=== PATIENT | female | born 1985 | race Caucasian/White ===

== ENCOUNTER 2016-08-16 16:19 | Emergency (ER) | payer OTHER ==
[~2016-08-16] VITALS: Ht 170.2 cm; Wt 58.6 kg
[~2016-08-16 16:19] MED LIST: AMOX TR-K CLV1 EAC3 PO; DICLEGIS DR 101 EACH PO; INSULIN PUMP SCCONT; LEVEMIR FL100 UNIT/1 SC; LEVOTHYROXINE50 MCG PO; LYRICA25 MG PO; MIRENA52 MG IY; NOVOLOG 10100 UNITS/ SC; PERCOCET 5/31 TABLET PO; PROAIR HFA8.5 GM IH; TYLENOL EXTRA500 MG PO
[2016-08-16] MEDS ORDERED: MOTRIN600 MG PO (18:14)
[2016-08-16] MEDS ORDERED: PEN-VEE K,VEET500 MG PO (18:14)
[2016-08-16] MEDS ORDERED: LORTAB 5-325 M1 EACH PO (18:14)
[2016-08-16 18:29] VITALS: BP 141/80
== END 2016-08-16 18:30 | disposition home or self-care (01) ==
LOC: EME 16:19
PROC: 3E0T3BZ Introduction of Anesthetic Agent into Peripheral Nerves and Plexi, Percutaneous Approach (ICD-10-PCS; principal; 2016-08-16)
DX: K08.89 Other specified disorders of teeth and supporting structures (principal); J45.909 Unspecified asthma, uncomplicated; E11.9 Type 2 diabetes mellitus without complications; Z79.4 Long term (current) use of insulin; F17.200 Nicotine dependence, unspecified, uncomplicated
CPT/HCPCS: 99281; 99284; S0020

== ENCOUNTER 2016-11-04 08:53 | Emergency (ER) | payer OTHER ==
[~2016-11-04] VITALS: Ht 170.2 cm; Wt 55.2 kg
[~2016-11-04 08:53] MED LIST changes: +LORTAB 5-325 M1 EACH PO; +MOTRIN600 MG PO; +PEN-VEE K,VEET500 MG PO
[2016-11-04 09:24] LABS: HEMATOCRIT 44.7 % (36.0-46.0); MCH 27.3 PG (29.0-34.0); MCV 85.3 FL (83-99); MEAN PLAT.VOLUME 11.9 uM^3 (9.5-12.4); PLATELET COUNT 228 K/uL (156-360); RBC DIS.WIDTH-CV 14.4 % (11.8-14.6); RBC DIS.WIDTH-SD 44.5 % (39-53); RED BLOOD COUNT 5.24 M/uL (3.80-5.20); WHITE BLOOD COUNT 9.1 K/uL (4.1-10.2)
[2016-11-04 09:34] LABS: CHLORIDE 105 mEq/L (99-109); POTASSIUM 3.7 mEq/L (3.7-5.4); SODIUM 138 mEq/L (136-147)
[2016-11-04 09:36] LABS: GLUCOSE 384 mg/dL (70-99)
[2016-11-04 09:38] LABS: CARBON DIOXIDE (BICARBONATE) 24.8 MEQ/L (20-31)
[2016-11-04 09:38] LABS: ANION GAP 11 MEQ/L (2-14)
[2016-11-04 09:40] LABS: GFR ESTIMATE (CALCULATED) > 59 mL/min/
[2016-11-04 09:41] LABS: UREA NITROGEN (BUN) 15 mg/dL (9-23)
[2016-11-04 09:44] LABS: POINT-OF-CARE METER ID UU13113702
[2016-11-04 10:44] LABS: ADD MIUA? NO; BILIRUBIN NEGATIVE; BLOOD NEGATIVE; COLOR YELLOW ((YELLOW)); GLUCOSE (STRIP) >=500; KETONES NEGATIVE; LEUKOCYTES NEGATIVE; NITRITE NEGATIVE; PROTEIN (STRIP) NEGATIVE; SPECIFIC GRAVITY 1.037 (1.000-1.030); UCUL ADDED? NO; UROBILINOGEN 0.2 MG/DL (0.2-1.0)
[2016-11-04 10:58] LABS: POINT-OF-CARE METER ID UU13113702
[2016-11-04 11:39] VITALS: BP 108/85
[2016-11-04 18:04] LABS: BASOPHIL COUNT 0.1 K/uL (0-0.1); EOSINOPHIL (%) 0.9 % (0-5); EOSINOPHIL COUNT 0.1 K/uL (0-0.3); IMMATURE GRANULOCYTE (%) 0.1 % (0.0-0.7); INSTRUMENT ABS NEUTROPHIL CT 5.9 K/uL; LYMPHOCYTE COUNT 2.6 K/uL (1.0-2.8); MONOCYTE (%) 4.7 % (3-12); MONOCYTE COUNT 0.4 K/uL (0-0.8); NEUTROPHIL (%) 64.9 % (45-76); NEUTROPHIL COUNT 5.9 K/uL (1.8-6.4); PLAT.SUFFICIENCY ADEQUATE
== END 2016-11-04 11:40 | disposition home or self-care (01) ==
LOC: EME 08:53
PROVIDERS: Emergency Medicine
DX: E11.65 Type 2 diabetes mellitus with hyperglycemia (principal); Z79.4 Long term (current) use of insulin; J45.909 Unspecified asthma, uncomplicated; F17.200 Nicotine dependence, unspecified, uncomplicated
CPT/HCPCS: 80048; 81003; 82010; 82803; 82948; 85025; 99281; 99285; J7030

== ENCOUNTER 2017-03-08 17:30 | Emergency (ER) | payer OTHER ==
[~2017-03-08] VITALS: Ht 170.2 cm; Wt 58.8 kg
[2017-03-08] MEDS ORDERED: LEVEMIR FL100 UNIT/1 SC (18:19)
[2017-03-08] MEDS ORDERED: LYRICA75 MG PO (18:21)
[2017-03-08] MEDS ORDERED: NOVOLOG100 UNIT/1 SC (18:21)
[2017-03-08] MEDS ORDERED: ADVAIR 100/501 DISK IH (18:22)
[2017-03-08] MEDS ORDERED: ATARAX,VISTARIL25 MG PO (18:23)
[2017-03-08] MEDS ORDERED: ONCE DAILY1 EACH PO (18:24)
[2017-03-08] MEDS ORDERED: VITAMIN D31000 UNI2 PO (18:24)
[2017-03-08 18:41] LABS: HEMATOCRIT 40.8 % (36.0-46.0); MCH 28.4 PG (29.0-34.0); MCHC 32.8 G/DL (30.0-36.0); MCV 86.4 FL (83-99); MEAN PLAT.VOLUME 11.6 uM^3 (9.5-12.4); PLATELET COUNT 182 K/uL (156-360); RBC DIS.WIDTH-CV 12.9 % (11.8-14.6); RBC DIS.WIDTH-SD 40.7 % (39-53); RED BLOOD COUNT 4.72 M/uL (3.80-5.20); WHITE BLOOD COUNT 6.8 K/uL (4.1-10.2)
[2017-03-08 18:50] LABS: CHLORIDE 103 mEq/L (99-109); POTASSIUM 3.8 mEq/L (3.7-5.4); SODIUM 138 mEq/L (136-147)
[2017-03-08 18:52] LABS: GLUCOSE 299 mg/dL (70-99)
[2017-03-08 18:53] LABS: ANION GAP 11 MEQ/L (2-14)
[2017-03-08 18:56] LABS: GFR ESTIMATE (CALCULATED) > 59 mL/min/
[2017-03-08 18:57] LABS: UREA NITROGEN (BUN) 12 mg/dL (9-23)
[2017-03-08 19:02] LABS: TROP-I INTERPRETATION NEGATIVE; TROPONIN-I < 0.01 ng/mL (0.0-0.30)
[2017-03-08 19:21] LABS: D-DIMER ELISA < 150.00 ng/mLDDU (<230)
[2017-03-08 21:20] VITALS: BP 110/69
== END 2017-03-08 21:25 | disposition home or self-care (01) ==
LOC: EME 17:30
PROVIDERS: Emergency Medicine
DX: R07.9 Chest pain, unspecified (principal); F17.200 Nicotine dependence, unspecified, uncomplicated; J45.909 Unspecified asthma, uncomplicated; E10.9 Type 1 diabetes mellitus without complications; Z79.4 Long term (current) use of insulin; Z96.41 Presence of insulin pump (external) (internal); Z97.5 Presence of (intrauterine) contraceptive device
CPT/HCPCS: 71020; 80048; 84484; 85027; 85379; 93005; 99281; 99284

== ENCOUNTER 2017-05-13 11:10 | Emergency (ER) | payer OTHER ==
[~2017-05-13] VITALS: Ht 170.2 cm; Wt 57.2 kg
[~2017-05-13 11:10] MED LIST changes: +ADVAIR 100/501 DISK IH; +ATARAX,VISTARIL25 MG PO; +LYRICA75 MG PO; +NOVOLOG100 UNIT/1 SC; +ONCE DAILY1 EACH PO; +VITAMIN D31000 UNI2 PO
[2017-05-13 11:42] LABS: ADD MIUA? YES; BILIRUBIN NEGATIVE; BLOOD SMALL; COLOR STRAW ((YELLOW)); GLUCOSE (STRIP) >=500; KETONES 80; LEUKOCYTES NEGATIVE; NITRITE NEGATIVE; PROTEIN (STRIP) NEGATIVE; SPECIFIC GRAVITY 1.035 (1.000-1.030); UROBILINOGEN 0.2 MG/DL (0.2-1.0)
[2017-05-13 11:46] LABS: BACTERIA RARE /HPF; EPITHELIAL CELLS 1+ /HPF; MUCUS TRACE /LPF; RED BLOOD CELLS 0-5 /HPF (0-5); UCUL ADDED? NO; WHITE BLOOD CELLS 0-5 /HPF (0-5)
[2017-05-13 11:47] LABS: HEMATOCRIT 45.1 % (36.0-46.0); MCH 28.4 PG (29.0-34.0); MCHC 32.6 G/DL (30.0-36.0); MCV 87.2 FL (83-99); MEAN PLAT.VOLUME 11.8 uM^3 (9.5-12.4); PLATELET COUNT 176 K/uL (156-360); RBC DIS.WIDTH-CV 13.2 % (11.8-14.6); RBC DIS.WIDTH-SD 42.4 % (39-53); RED BLOOD COUNT 5.17 M/uL (3.80-5.20); WHITE BLOOD COUNT 9.5 K/uL (4.1-10.2)
[2017-05-13 11:50] LABS: CARBON DIOXIDE (BICARBONATE) 29.1 MEQ/L (20-31)
[2017-05-13 11:56] LABS: CHLORIDE 98 mEq/L (99-109); POTASSIUM 4.4 mEq/L (3.7-5.4); SODIUM 134 mEq/L (136-147)
[2017-05-13 11:59] LABS: ANION GAP 13 MEQ/L (2-14)
[2017-05-13 12:00] LABS: TOTAL BILIRUBIN 0.7 mg/dL (0.0-1.0)
[2017-05-13 12:01] LABS: ALKALINE PHOSPHATASE 120 IU/L (3-129)
[2017-05-13 12:02] LABS: GFR ESTIMATE (CALCULATED) > 59 mL/min/
[2017-05-13 12:03] LABS: UREA NITROGEN (BUN) 10 mg/dL (9-23)
[2017-05-13 12:15] LABS: QUANTITATIVE HCG < 4.0 MIU/ML
[2017-05-13 12:17] LABS: GLUCOSE 468 mg/dL (70-99)
[2017-05-13 14:54] LABS: POINT-OF-CARE METER ID UU14100415
[2017-05-13 15:25] LABS: CARBON DIOXIDE (BICARBONATE) 27.9 MEQ/L (20-31)
[2017-05-13 15:35] LABS: ANION GAP 6 MEQ/L (2-14)
[2017-05-13 15:38] LABS: GFR ESTIMATE (CALCULATED) > 59 mL/min/
[2017-05-13 15:39] LABS: UREA NITROGEN (BUN) 10 mg/dL (9-23)
[2017-05-13 15:42] LABS: CHLORIDE 113 mEq/L (99-109); GLUCOSE 91 mg/dL (70-99); POTASSIUM 3.5 mEq/L (3.7-5.4); SODIUM 141 mEq/L (136-147)
[2017-05-13 16:38] VITALS: BP 102/62
== END 2017-05-13 16:40 | disposition home or self-care (01) ==
LOC: EME 11:10
PROVIDERS: Emergency Medicine; Nurse Practitioner Family
DX: E11.65 Type 2 diabetes mellitus with hyperglycemia (principal); E86.0 Dehydration; Z79.4 Long term (current) use of insulin; J45.909 Unspecified asthma, uncomplicated; F32.9 Major depressive disorder, single episode, unspecified; F41.9 Anxiety disorder, unspecified; F17.200 Nicotine dependence, unspecified, uncomplicated; Z88.8 Allergy status to other drugs, medicaments and biological substances
CPT/HCPCS: 80048 91; 80053; 81003; 82010; 82803; 82948; 84702; 85027; 99281; 99285; J7030

== ENCOUNTER → 2017-12-03 | Outpatient (CLI) | payer BC, OTHER | END | disposition home or self-care (01) | LOC: RES 10-22 08:00 | DX: J45.990 Exercise induced bronchospasm (principal); J30.9 Allergic rhinitis, unspecified | CPT/HCPCS: 94070; 94726; 94729 ==

== ENCOUNTER 2018-01-09 12:43 | Emergency (ER) | payer BC, OTHER ==
[~2018-01-09] VITALS: Ht 165.1 cm; Wt 57.0 kg
[2018-01-09 13:51] LABS: BASOPHIL (%) 0.8 % (0-1); BASOPHIL COUNT 0.1 K/uL (0-0.1); EOSINOPHIL (%) 1.1 % (0-5); EOSINOPHIL COUNT 0.1 K/uL (0-0.3); HEMATOCRIT 39.6 % (36.0-46.0); HEMOGLOBIN 13.8 G/DL (11.9-15.5); IMMATURE GRANULOCYTE (%) 0.3 % (0.0-0.7); LYMPHOCYTE (%) 26.3 % (15-42); LYMPHOCYTE COUNT 2.7 K/uL (1.0-2.8); MCH 29.4 PG (29.0-34.0); MCHC 34.8 G/DL (30.0-36.0); MCV 84.3 FL (83-99); MONOCYTE (%) 5.7 % (3-12); MONOCYTE COUNT 0.6 K/uL (0-0.8); NEUTROPHIL (%) 65.8 % (45-76); NEUTROPHIL COUNT 6.8 K/uL (1.8-6.4); PLATELET COUNT 191 K/uL (156-360); RBC DIS.WIDTH-CV 12.4 % (11.8-14.6); RBC DIS.WIDTH-SD 38.4 % (39-53); WHITE BLOOD COUNT 10.4 K/uL (4.1-10.2)
[2018-01-09 13:59] LABS: CHLORIDE 101 mEq/L (99-109); POTASSIUM 3.5 mEq/L (3.7-5.4); SODIUM 137 mEq/L (136-147)
[2018-01-09 14:00] LABS: GLUCOSE 278 mg/dL (70-99)
[2018-01-09 14:04] LABS: CREATININE 0.8 mg/dL (0.6-1.3); GFR ESTIMATE (CALCULATED) > 59 mL/min/
[2018-01-09 14:05] LABS: UREA NITROGEN (BUN) 10 mg/dL (9-23)
[2018-01-09 16:20] LABS: APPEARANCE SL.HAZY ((CLEAR)); BILIRUBIN NEGATIVE; BLOOD NEGATIVE; COLOR YELLOW ((YELLOW)); GLUCOSE (STRIP) >=500; KETONES 20; LEUKOCYTES NEGATIVE; NITRITE NEGATIVE; PROTEIN (STRIP) 30; SPECIFIC GRAVITY 1.044 (1.000-1.030); UROBILINOGEN 0.2 MG/DL (0.2-1.0)
[2018-01-09 16:23] LABS: BACTERIA NONE SEEN /HPF; EPITHELIAL CELLS 2+ /HPF; MUCUS TRACE /LPF; UCUL ADDED? NO; WHITE BLOOD CELLS 0-5 /HPF (0-5)
[2018-01-09] MEDS ORDERED: MOTRIN600 MG PO (16:31)
[2018-01-09] MEDS ORDERED: SKELAXIN800 MG PO (16:31)
[2018-01-09 16:35] VITALS: BP 119/71
== END 2018-01-09 17:06 | disposition home or self-care (01) ==
LOC: EME 12:43
PROVIDERS: Emergency Medicine
DX: M43.6 Torticollis (principal); E10.65 Type 1 diabetes mellitus with hyperglycemia; R42 Dizziness and giddiness; Z96.41 Presence of insulin pump (external) (internal); Z79.4 Long term (current) use of insulin; J45.909 Unspecified asthma, uncomplicated; F17.200 Nicotine dependence, unspecified, uncomplicated; Z88.8 Allergy status to other drugs, medicaments and biological substances
CPT/HCPCS: 80048; 81003; 82948; 85025; 99281; 99285; J1885; J2060

== ENCOUNTER 2018-01-26 11:06 | Emergency (ER) | payer BC, OTHER ==
[~2018-01-26] VITALS: Ht 170.2 cm; Wt 54.0 kg
[~2018-01-26 11:06] MED LIST changes: +SKELAXIN800 MG PO
[2018-01-26 11:42] LABS: BASOPHIL (%) 0.8 % (0-1); BASOPHIL COUNT 0.1 K/uL (0-0.1); EOSINOPHIL (%) 1.1 % (0-5); EOSINOPHIL COUNT 0.1 K/uL (0-0.3); HEMATOCRIT 47.1 % (36.0-46.0); IMMATURE GRANULOCYTE (%) 0.3 % (0.0-0.7); LYMPHOCYTE (%) 22.7 % (15-42); LYMPHOCYTE COUNT 2.2 K/uL (1.0-2.8); MCHC 33.8 G/DL (30.0-36.0); MCV 85.9 FL (83-99); MONOCYTE (%) 4.4 % (3-12); MONOCYTE COUNT 0.4 K/uL (0-0.8); NEUTROPHIL (%) 70.7 % (45-76); NEUTROPHIL COUNT 6.8 K/uL (1.8-6.4); PLATELET COUNT 224 K/uL (156-360); RBC DIS.WIDTH-CV 12.6 % (11.8-14.6); RBC DIS.WIDTH-SD 39.6 % (39-53); RED BLOOD COUNT 5.48 M/uL (3.80-5.20); WHITE BLOOD COUNT 9.6 K/uL (4.1-10.2)
[2018-01-26 11:43] LABS: HEMOGLOBIN 15.9 G/DL (11.9-15.5)
[2018-01-26 11:48] LABS: CHLORIDE 94 mEq/L (99-109); POTASSIUM 3.9 mEq/L (3.7-5.4); SODIUM 132 mEq/L (136-147)
[2018-01-26 11:53] LABS: CREATININE 1.2 mg/dL (0.6-1.3); GFR ESTIMATE (CALCULATED) 56 mL/min/
[2018-01-26 11:54] LABS: UREA NITROGEN (BUN) 12 mg/dL (9-23)
[2018-01-26 11:56] LABS: GLUCOSE 536 mg/dL (70-99)
[2018-01-26 12:03] LABS: APPEARANCE CLEAR ((CLEAR)); BILIRUBIN NEGATIVE; BLOOD NEGATIVE; COLOR YELLOW ((YELLOW)); GLUCOSE (STRIP) >=500; KETONES 20; LEUKOCYTES NEGATIVE; NITRITE NEGATIVE; PROTEIN (STRIP) NEGATIVE; SPECIFIC GRAVITY 1.036 (1.000-1.030); UCUL ADDED? NO; UROBILINOGEN 0.2 MG/DL (0.2-1.0)
[2018-01-26 14:08] VITALS: BP 109/69
== END 2018-01-26 14:10 | disposition home or self-care (01) ==
LOC: EME 11:06
PROVIDERS: Emergency Medicine
DX: E11.65 Type 2 diabetes mellitus with hyperglycemia (principal); R42 Dizziness and giddiness; R11.0 Nausea; R05 Cough; J45.909 Unspecified asthma, uncomplicated; Z79.4 Long term (current) use of insulin; F17.200 Nicotine dependence, unspecified, uncomplicated
CPT/HCPCS: 71046; 80048; 81003; 81025; 82010; 82948; 85025; 99281; 99285

== ENCOUNTER 2018-02-09 09:02 | Emergency (ER) | payer BC, OTHER ==
[~2018-02-09] VITALS: Ht 170.2 cm; Wt 55.7 kg
[2018-02-09 09:51] LABS: BASOPHIL (%) 0.8 % (0-1); BASOPHIL COUNT 0.1 K/uL (0-0.1); EOSINOPHIL (%) 0.8 % (0-5); EOSINOPHIL COUNT 0.1 K/uL (0-0.3); HEMATOCRIT 42.1 % (36.0-46.0); HEMOGLOBIN 14.3 G/DL (11.9-15.5); IMMATURE GRANULOCYTE (%) 0.2 % (0.0-0.7); LYMPHOCYTE (%) 20.2 % (15-42); LYMPHOCYTE COUNT 2.2 K/uL (1.0-2.8); MCH 29.2 PG (29.0-34.0); MCV 85.9 FL (83-99); MONOCYTE (%) 4.5 % (3-12); MONOCYTE COUNT 0.5 K/uL (0-0.8); NEUTROPHIL (%) 73.5 % (45-76); PLATELET COUNT 172 K/uL (156-360); RBC DIS.WIDTH-CV 12.9 % (11.8-14.6); RBC DIS.WIDTH-SD 40.4 % (39-53); WHITE BLOOD COUNT 10.8 K/uL (4.1-10.2)
[2018-02-09 09:57] LABS: CARBON DIOXIDE (BICARBONATE) 25.1 MEQ/L (20-31)
[2018-02-09 10:01] LABS: CHLORIDE 101 mEq/L (99-109); POTASSIUM 3.8 mEq/L (3.7-5.4); SODIUM 133 mEq/L (136-147)
[2018-02-09 10:04] LABS: GLUCOSE 486 mg/dL (70-99)
[2018-02-09 10:07] LABS: GFR ESTIMATE (CALCULATED) > 59 mL/min/
[2018-02-09 10:08] LABS: UREA NITROGEN (BUN) 14 mg/dL (9-23)
[2018-02-09 10:09] LABS: LIPASE 49 U/L (1.0-51.0)
[2018-02-09 10:15] LABS: QUANTITATIVE HCG < 4.0 MIU/ML
[2018-02-09 10:43] LABS: APPEARANCE CLEAR ((CLEAR)); BILIRUBIN NEGATIVE; BLOOD NEGATIVE; COLOR STRAW ((YELLOW)); GLUCOSE (STRIP) >=500; KETONES 20; LEUKOCYTES NEGATIVE; NITRITE NEGATIVE; PROTEIN (STRIP) NEGATIVE; SPECIFIC GRAVITY 1.035 (1.000-1.030); UCUL ADDED? NO; UROBILINOGEN 0.2 MG/DL (0.2-1.0)
[2018-02-09 14:27] VITALS: BP 107/7
== END 2018-02-09 14:30 | disposition home or self-care (01) ==
LOC: EME 09:02
PROVIDERS: Emergency Medicine
DX: E11.65 Type 2 diabetes mellitus with hyperglycemia (principal); E86.0 Dehydration; R00.2 Palpitations; R51 Headache; R42 Dizziness and giddiness; R10.9 Unspecified abdominal pain; Z79.4 Long term (current) use of insulin; J45.909 Unspecified asthma, uncomplicated; F17.200 Nicotine dependence, unspecified, uncomplicated
CPT/HCPCS: 71045; 80048; 81003; 82010; 82803; 82948; 83690; 84702; 85025; 99281; 99285; J7030

== ENCOUNTER 2018-03-05 10:36 | Emergency (ER) | payer BC, OTHER ==
[~2018-03-05] VITALS: Ht 170.2 cm; Wt 53.3 kg
[2018-03-05 11:42] LABS: BASOPHIL COUNT 0.1 K/uL (0-0.1); EOSINOPHIL (%) 1.8 % (0-5); EOSINOPHIL COUNT 0.2 K/uL (0-0.3); HEMATOCRIT 42.1 % (36.0-46.0); HEMOGLOBIN 14.1 G/DL (11.9-15.5); IMMATURE GRANULOCYTE (%) 0.3 % (0.0-0.7); LYMPHOCYTE (%) 25.6 % (15-42); LYMPHOCYTE COUNT 2.3 K/uL (1.0-2.8); MCH 29.3 PG (29.0-34.0); MCHC 33.5 G/DL (30.0-36.0); MCV 87.3 FL (83-99); MONOCYTE (%) 5.3 % (3-12); MONOCYTE COUNT 0.5 K/uL (0-0.8); NEUTROPHIL COUNT 5.9 K/uL (1.8-6.4); PLATELET COUNT 198 K/uL (156-360); RBC DIS.WIDTH-CV 12.8 % (11.8-14.6); RBC DIS.WIDTH-SD 40.8 % (39-53); RED BLOOD COUNT 4.82 M/uL (3.80-5.20); WHITE BLOOD COUNT 8.9 K/uL (4.1-10.2)
[2018-03-05 11:51] LABS: APPEARANCE CLEAR ((CLEAR)); BILIRUBIN NEGATIVE; BLOOD NEGATIVE; COLOR STRAW ((YELLOW)); GLUCOSE (STRIP) >=500; KETONES 80; LEUKOCYTES NEGATIVE; NITRITE NEGATIVE; PROTEIN (STRIP) NEGATIVE; SPECIFIC GRAVITY 1.037 (1.000-1.030); UROBILINOGEN 0.2 MG/DL (0.2-1.0)
[2018-03-05 11:53] LABS: CHLORIDE 106 mEq/L (99-109); POTASSIUM 3.3 mEq/L (3.7-5.4); SODIUM 139 mEq/L (136-147)
[2018-03-05 11:54] LABS: GLUCOSE 351 mg/dL (70-99)
[2018-03-05 11:58] LABS: CREATININE 0.8 mg/dL (0.6-1.3); GFR ESTIMATE (CALCULATED) > 59 mL/min/
[2018-03-05 11:59] LABS: UREA NITROGEN (BUN) 11 mg/dL (9-23)
[2018-03-05 14:12] VITALS: BP 107/70
== END 2018-03-05 14:23 | disposition home or self-care (01) ==
LOC: EME 10:36
PROVIDERS: Emergency Medicine
DX: E11.65 Type 2 diabetes mellitus with hyperglycemia (principal); J45.909 Unspecified asthma, uncomplicated; F32.9 Major depressive disorder, single episode, unspecified; F41.9 Anxiety disorder, unspecified; F17.200 Nicotine dependence, unspecified, uncomplicated; Z79.4 Long term (current) use of insulin; Z79.51 Long term (current) use of inhaled steroids; Z96.41 Presence of insulin pump (external) (internal); Z97.5 Presence of (intrauterine) contraceptive device; Z88.1 Allergy status to other antibiotic agents; Z88.8 Allergy status to other drugs, medicaments and biological substances
CPT/HCPCS: 71045; 80048; 81003; 82010; 82803; 82948; 85025; 99281; 99285; J7030